=== PATIENT | female | born 1940 | race Caucasian/White ===

== ENCOUNTER → 2022-03-22 | Outpatient (CLI) | payer SELFPAY, OTHER ==
--- NOTE | 2022-03-22 14:19 | ECHOCS_ITS ---
Reason For Study: ARRYTHMIA Procedure This was a 2D Doppler, Color Flow transthoracic echocardiogram. The study was technically difficult. Contrast injection was performed. Exam performed in department. Left Ventricle Normal LV size. Left ventricular systolic function is normal. The estimated ejection fraction is 55 %. No regional wall motion abnormalities noted. Right Ventricle Normal RV size. Normal systolic function. Atria The left atrium is mildly enlarged. Normal right atrium. Mitral Valve Normal mitral valve. Tricuspid Valve Normal tricuspid valve. Aortic Valve The aortic valve is not well visualized. Pulmonic Valve The pulmonic valve is not well visualized. Great Vessels Normal aortic root. The pulmonary artery is normal size. Normal inferior vena cava. Pericardium/Pleural No pericardial effusion. Medication 22 gauge I.V. with prn adaptor inserted into right arm. Diluted definity 1ml given slow IV push to enhance endocardial definition. MMode/2D Measurements & Calculations LVIDd: 5.1 cm IVSd: 1.1 cm Ao root diam: 3.0 cm LVIDs: 3.8 cm LVPWd: 0.82 cm FS: 24.9 % LAV(MOD-sp4): 83.2 ml LA A4 area: 25.0 cm2 LA dimension(2D): 4.1 cm RA A4 area: 18.0 cm2 Time Measurements MV dec time: 0.19 sec Doppler Measurements & Calculations MV E max cash: 103.3 cm/sec Lat Peak E' Cash: 9.1 cm/sec Med Peak E' Cash: 5.5 cm/sec MV A max cash: 99.3 cm/sec E/E' lat: 11.4 E/E' med: 18.8 MV E/A: 1.0 MV V2 max: 103.6 cm/sec MV dec slope: 540.6 cm/sec2 Ao V2 max: 149.1 cm/sec MV max P.3 mmHg Ao max P.9 mmHg MV V2 mean: 72.5 cm/sec Ao V2 mean: 99.7 cm/sec MV mean P.3 mmHg Ao mean P.6 mmHg MV V2 VTI: 34.7 cm Ao V2 VTI: 35.4 cm LV V1 max: 102.4 cm/sec PA V2 max: 84.7 cm/sec LV V1 max P.2 mmHg PA V2 mean: 63.9 cm/sec LV V1 mean P.4 mmHg LV V1 mean: 72.0 cm/sec LV V1 VTI: 25.3 cm ECHO/Echo Complete W/ Contrast Interpretation Summary Normal LV size. Left ventricular systolic function is normal. The estimated ejection fraction is 55 %. Contrast injection was performed. Ordering Physician: Mateo Conner Referring Physician: Mateo Conner Performed By: Angeles Kim RCS
== END | disposition home or self-care (01) ==
LOC: CVS 14:19
PROVIDERS: PCP Nurse Practitioner Family; Referring Provider Internal Medicine Cardiovascular Disease; Visit Provider Internal Medicine Cardiovascular Disease
DX: I49.3 Ventricular premature depolarization (principal)
CPT/HCPCS: 93306; Q9957; A4216; C8929

== ENCOUNTER 2022-04-19 05:51 | Day surgery (SDC) | payer SELFPAY, OTHER ==
--- NOTE | 2022-02-08 11:16 | NURSING ---
During PAT interview, pt read 10/2021 EKG interpretation. Pt states EKG read PVC and heart block, see Workshop Manager. Pt states she has not seen Workshop Manager. Pt instructed to notify ordering physician and ask for Cardiology referral. Pt's Dgtr-in-law on PAT phone interview also.
[2022-04-19] VITALS (8 sets, daily range): BP systolic 144–173; BP diastolic 62–83; PULSE 70–75; RESP 16–18; TEMP 36.2–37; O2SAT 90–99; BMI 49.0
--- NOTE | 2022-04-19 | LES_PTH ---
PATIENT: LIGIA HOOVER [place]: [facility] [place][id number] AGE/SX: 82/F ROOM: RE04/19/[address]: Dr. Mayco Saldaña MD : 1940 BED: DIS: 04/19/2022 SPEC #: [id number] RECD: 04/19/22 08:09 STATUS: VERNELL BEVERLY #: [id number] ADEOLA: 04/19/22 00:[address]: Mayco Saldaña DEPT: SURGICAL PATHOLOGY RECD BY: Chary Boswell ENTERED: 04/19/22 09:03 SP TYPE: Lesion OTHR DR: Venessa Lee, ANTIQUE JEWELRY REPAIRER-C Tissues: A - Skin of nose, NOS B - Skin of nose, NOS C - Skin of nose, NOS Procedures: Frozen Section (charge) Frozen Section Add'l ([facility]) Surgery Specimen Level IV HEADER OPERATION: Excision lesion nose, local flap reconstruction, frozen section PRE-OP DIAGNOSIS: Basal cell carcinoma of skin of nose TISSUE SUBMITTED: A - Nasal tip ulcer, short stitch superior at 12 o?clock, long stitch medial at 3 o?clock, FS, B - Additional superior margin, short stitch superior, long stitch lateral, FS, C - Additional inferior margin, suture medial, FS FROZEN SECTION DIAGNOSIS A. Skin lesion of nose, excisional biopsy: Basal cell carcinoma. The tumor is present at 6 and 12 o?clock margins. B. Additional superior margin: Negative for carcinoma. C. Additional inferior margin: Negative for carcinoma. JOHN:power 04/19/2022 MICROSCOPIC DIAGNOSIS A. Skin lesion of nose, excisional biopsy: Ulcerated basal cell carcinoma. Solar elastosis. See comment. B. Additional superior margin: Negative for carcinoma. Solar elastosis. C. Additional inferior margin: Negative for carcinoma. Solar elastosis. JOHN:power 04/20/2022 COMMENT A. The tumor measures 0.7 cm in greatest dimension and it is present at 6 and 12 o?clock margins. MICROSCOPIC DESCRIPTION Slides are reviewed. GROSS DESCRIPTION A - Received fresh for frozen section diagnosis labeled with the patient's name is a specimen designated basal cell carcinoma skin of nose, nasal tip ulcer. The specimen consists of a round piece of frank-white skin measuring 1 x 1 x 0.2 cm. The skin surface shows a focal area of ulceration. The specimen is oriented as follows: short stitch superior at 12 o?clock, long stitch medial at 3 o?clock. The specimen is inked as follows: 6 o?clock - yellow, 12 o?clock - green, 3 o?clock - black, 9 o?clock - blue. The specimen serially sectioned and submitted entirely for frozen section diagnosis in three cassettes as follows: 1 - 12 o?clock margin, 2 - 6 o?clock margin, 3 - rest of the specimen. / SJ: 04/19/2022 B - Received fresh for frozen section diagnosis labeled with the patient's name is a specimen designated ?lesion superior margin.? The specimen consists of a piece of skin measuring 0.5 x 0.1 x 0.1 cm. The specimen is oriented as follows: short stitch - superior, long stitch - lateral. The specimen is inked as follows: lateral - black, medial - blue. The entire specimen is submitted for frozen section diagnosis in one cassette. / SJ:power 04/19/2022 C - Received fresh for frozen section diagnosis labeled with the patient's name is a specimen designated ?additional inferior margin. The specimen consists of a piece of frank-white skin measuring 0.6 x 0.1 x 0.1 cm. The specimen is oriented as suture medial. The specimen is inked as follows: medial - blue, lateral - black. The entire specimen is submitted is submitted for frozen section diagnosis in one cassette. / SJ: 04/19/2022 TC:0 CPT: 73786 x3, 15334 x3, 94929 x2
[2022-04-19] MEDS: Lactated Ringers 1,000 ML 15 ML IV (06:20)
[2022-04-19 06:35] LABS: Hematocrit 41.9 % (37-47); Hemoglobin 13.2 g/dL (12.0-15.0); Mean Corp Hgb Conc 31.5 g/dL (32-36); Mean Corpuscular Hgb 30.6 pg (27.0-32.0); Mean Platelet Vol. 10.3 fl (6.2-12.0); Platelet Count 251 K/mm3 (150-450); RBC Distribution Width CV 13.6 % (11.6-14.6); RBC Distribution Width SD 48.7 fl (35.1-43.9); Red Blood Count 4.32 M/mm3 (4.2-5.4); White Blood Count 7.9 K/mm3 (4.4-11.0)
[2022-04-19 06:51] LABS: Anion Gap 10 (5-15); BUN 21 mg/dL (7-18); BUN/Creat Ratio 18.9 RATIO (10-20); Calcium,Total 9.3 mg/dL (8.5-10.1); Chloride 102 mmol/L (98-107); Creatinine, Serum 1.11 mg/dL (0.55-1.02); EST Glomerular Filtration Rate 50 mL/min (>60); Est Glom Filt Rate - Afr Amer 61 mL/min (>60); Estimated Creatinine Clearance 29.49 ml/min; Glucose 190 mg/dL (74-106); Potassium 4.7 mmol/L (3.5-5.1); Sodium Level 136 mmol/L (136-145)
[2022-04-19 07:00] LABS: Bedside Glucose 186 mg/dL (74-106)
--- NOTE | 2022-04-19 07:35 | PCM.DC.SUM ---
Providers Primary Care Physician: Venessa Lee NP-C Reason For Visit: EXC LESION NOSE RT LOCAL FLAP RECONSTRUCTION FROZE Medications at Discharge Home Medications glimepiride 4 mg tablet 4 mg PO BID 02/08/22 hydrochlorothiazide 25 mg tablet 25 mg PO DAILY HTN 02/08/22 metformin 500 mg tablet 500 mg PO BID 02/08/22 simvastatin 40 mg tablet 1 tab PO QHS 02/08/22 carvedilol 25 mg tablet 25 mg PO BID #120 tabs 03/10/22 Weight / BMI Weight Weight: 117.8 kg Body Mass Index (BMI) 49.0 ABG / Lab / Microbiology Data Result Diagrams: 04/19/22 06:30 04/19/22 06:30 Laboratory: Laboratory Results - last 24 hr 04/19/22 06:30: WBC 7.9, RBC 4.32, Hgb 13.2, Hct 41.9, MCV 97.0, MCH 30.6, MCHC 31.5 L, RDW Std Deviation 48.7 H, RDW Coeff of Amaury 13.6, Plt Count 251, MPV 10.3 04/19/22 06:30: Sodium 136, Potassium 4.7, Chloride 102, Carbon Dioxide 24.0, Anion Gap 10, BUN 21 H, Creatinine 1.11 H, Estim Creat Clear Calc 29.49, Est GFR (MDRD) Af Amer 61, Est GFR (MDRD) Non-Af 50 L, BUN/Creatinine Ratio 18.9, Glucose 190 H, Calcium 9.3 04/19/22 06:35: POC Glucose 186 H D/C Instructions Discharge Diet: No restrictions Discharge Activity: Return to Normal Activity Remove Dressing in: 1 day Additional Dressing/Incision Instructions: Remove dressing tomorrow. May get the incision/sutures wet on Tuesday. Please Follow Up With: Mayco Saldaña MD When: end of next week Meaningful Use Info Meaningful Use Diagnoses (Choose all that apply): None applicable Discharge Plan Admission Attending Provider: Mayco Saldaña Primary Care Provider: Venessa Lee NP Discharge Orders/Prescriptions Prescriptions: No Action carvedilol 25 mg tablet 25 mg PO BID Qty: 120 3RF Rx Instructions: must administer with a meal/food metformin 500 mg tablet 500 mg PO BID Label Comments: TAKE ONE TABLET BY MOUTH TWICE DAILY simvastatin 40 mg tablet 1 tab PO QHS Label Comments: TAKE ONE TABLET BY MOUTH EVERY DAY glimepiride 4 mg tablet 4 mg PO BID Label Comments: TAKE ONE TABLET BY MOUTH TWICE DAILY hydrochlorothiazide 25 mg tablet 25 mg PO DAILY Label Comments: TAKE ONE TABLET BY MOUTH EVERY DAY Referrals / Follow Up: Venessa Lee LICENSING AND REGISTRATION DIRECTOR, LICENSING AND REGISTRATION DIRECTOR-C [Primary Care Provider] - Disposition Disposition (needs filled in before D/C Order can be placed): Home, Self Care
[2022-04-19] MEDS: Lidocaine 2% /Epi 1:100 (50ml) 50 ML Vial (08:00)
--- NOTE | 2022-04-19 09:23 | PCM.OPRPT ---
Report of Operation Date of Procedure: 04/19/22 Pre-Operative Diagnosis: basal cell carcinoma nose Post-Operative Diagnosis: same Surgery/Procedure Performed:: excision basal cell carcinoma nose (size of defect 1.5 x 1.1 cm) Local flap (bilobed) reconstruction Surgeon: Mayco Saldaña Type of Anesthesia: General Anesthesiologist: Israel Egan Estimated Blood Loss (mL): minimal Description of Procedure: The patient was taken to the operating room on 04/19/2022. She was placed in the supine position on the operating room table. She was given sufficient general endotracheal anesthesia. The head of bed of is elevated 30 degrees. The face was prepped and draped sterilely. The eyes were taped off the field with Tegaderm. I initially excised the lesion with a 15 blade with 5 mm margins. This was sent for frozen section. It was found that there were positive margins at 12 and 6:00. Additional superior and inferior margins were taken and sent to patholog. They were found to be negative for carcinoma. I then fashioned a bilobed flap that was based medially. Undermining was completed with sharp scissors. The bilobed flap was created with a 15 blade. The bilobed flap was then swung into the defect. 4-0 Vicryl was used to suture the deep layers. The skin was then closed with interrupted 6-0 nylon. Bacitracin and a pressure dressing were then applied. Patient was then awoken and brought to recovery in stable condition blood loss minimal placement none. sponge needle and instrument count were correct at the end of the procedure.
[2022-04-19] MEDS: Bacitracin 500 UNITS/GM PACKET (09:25)
[2022-04-19 10:41] LABS: Bedside Glucose 189 mg/dL (74-106)
== END 2022-04-19 11:39 | disposition home or self-care (01) ==
LOC: SDC 05:52 → AC 05:53
PROVIDERS: PCP Nurse Practitioner Family; Referring Provider Otolaryngology; Visit Provider Otolaryngology
PROC: (CPT 14060; principal; 2022-04-19 07:20)
DX: C44.311 Basal cell carcinoma of skin of nose (principal); E11.9 Type 2 diabetes mellitus without complications; Z79.899 Other long term (current) drug therapy; Z79.84 Long term (current) use of oral hypoglycemic drugs; E66.9 Obesity, unspecified; I10 Essential (primary) hypertension; I45.10 Unspecified right bundle-branch block; M19.90 Unspecified osteoarthritis, unspecified site
CPT/HCPCS: 14060; 00300; 80048; 82962; 85027; 88305; 88331; 88332; J7120; J2405

== ENCOUNTER → 2024-01-10 | Outpatient (CLI) | payer SELFPAY, OTHER ==
--- NOTE | 2024-01-10 08:27 | CT_ITS ---
STUDY: CT BILATERAL HIPS T PELVIS REASON FOR EXAM: Female, 83 years old. Pain. RADIATION DOSAGE (If Supplied By Facility): CTDIvol = ( 14.07 ) mGy, DLP = ( 1007.26 ) mGycm TECHNIQUE: Transaxial imaging of the pelvis, both hips and both knees was performed with oral contrast, and without intravenous administration of contrast material. Individualized dose optimization techniques were used for this CT. COMPARISON: None. FINDINGS: Diffuse marked osteopenia. Moderate to severe lower lumbosacral spondylosis and levoscoliosis. Severe arthrosis of the right hip with flattening of the right femoral head, subchondral cyst formation, subchondral sclerosis and osteophyte formation. Mild arthrosis of the left hip with osteophyte formation. Severe tricompartmental arthrosis of both knees with osteophyte formation. Vascular calcification and uterine fibroids in the pelvis. CT/Extremity Lower without Contra IMPRESSION: Diffuse marked osteopenia. Moderate to severe lower lumbosacral spondylosis with levoscoliosis. Severe arthrosis of the right hip as described. Mild arthrosis of the left hip as described. Severe tricompartmental arthrosis of both knees. Electronically Signed: Marcos Sherman MD at 16:01 EDT ,
== END | disposition home or self-care (01) ==
PROVIDERS: PCP Nurse Practitioner Family; Referring Provider Student in an Organized Health Care Education/Training Program; Visit Provider Student in an Organized Health Care Education/Training Program
DX: M16.11 Unilateral primary osteoarthritis, right hip (principal)
CPT/HCPCS: 73700

== ENCOUNTER 2024-01-30 12:01 | Observation (INO) | payer SELFPAY, OTHER ==
[2024-01-10 09:52] LABS: Absolute Lymphocyte Count 1.97 X10^3/uL (0.83-4.51); Absolute Neutrophil Count 4.5 X10^3/uL (2.0-7.7); Basophil# 0.04 X10^3/uL; Basophil% 0.5 % (0-1); Eosinophil# 0.31 X10^3/uL; Eosinophils% 4.1 % (0-5); Hemoglobin 12.2 g/dL (12.0-15.0); Lymphocyte # 1.97 X10^3/ul (0.83-4.51); Lymphocyte % 26.3 % (19-41); Mean Corp Hgb Conc 32.1 g/dL (32-36); Mean Corpuscular Hgb 29.7 pg (27.0-32.0); Mean Corpuscular Volume 92.5 fL (81-99); Mean Platelet Vol. 10.8 fl (6.2-12.0); Monocyte% 9.3 % (0-10); NRBC Flagged by Analyzer 0 % (0-5); Neutrophil # 4.45 X10^3/uL (2.7-7.7); Neutrophil % 59.5 % (47-70); Platelet Count 239 K/mm3 (150-450); RBC Distribution Width CV 14.6 % (11.6-14.6); RBC Distribution Width SD 49.6 fl (35.1-43.9); Red Blood Count 4.11 M/mm3 (4.2-5.4); White Blood Count 7.5 K/mm3 (4.4-11.0)
[2024-01-10 10:28] LABS: Albumin, Serum 3.6 g/dL (3.2-5.0); Anion Gap 9 (5-15); BUN 57 mg/dL (7-18); BUN/Creat Ratio 36.5 RATIO (10-20); Calcium,Total 10.1 mg/dL (8.5-10.1); Chloride 99 mmol/L (98-107); Creatinine, Serum 1.56 mg/dL (0.55-1.02); EST Glomerular Filtration Rate 34 mL/min (>60); Est Glom Filt Rate - Afr Amer 41 mL/min (>60); Glucose 199 mg/dL (74-106); Potassium 4.4 mmol/L (3.5-5.1); Sodium Level 138 mmol/L (136-145)
[2024-01-10 10:34] LABS: Magnesium 2.1 mg/dL (1.6-2.6)
[2024-01-30] VITALS (13 sets, daily range): BP systolic 104–181; BP diastolic 65–89; PULSE 59–78; RESP 16–22; TEMP 35.6–36.8; O2SAT 90–100; BMI 47.9; BMI 48.2
--- NOTE | 2024-01-30 | HIP_PTH ---
PATIENT: LIGIA HOOVER LOC: [facility] U#:[id number] AGE/SX: 84/F ROOM: [facility] [place] RE01/30/[address]: Dr. Sean Encinas DO : 1940 BED: 1 DIS: 01/31/2024 SPEC #: [id number] RECD: 01/30/24 13:37 STATUS: VERNELL REHuey #: [id number] ADEOLA: 01/30/24 00:[address]: Sean Encinas DEPT: SURGICAL PATHOLOGY RECD BY: Edy Tom ENTERED: 01/31/24 07:25 SP TYPE: TOTAL HIP OTHR DR: DO Dr. Fany Mccann MD Whitney Hofstetter, AGENT TELEGRAPHER-C Tissues: Hip, NOS Procedures: Decalcification bone/plaque Surgery Specimen Level IV HEADER OPERATION: Right total hip replacement robotic arm assist PRE-OP DIAGNOSIS: Unilateral primary osteoarthritis, right hip TISSUE SUBMITTED: Right hip bone and tissue MICROSCOPIC DIAGNOSIS Right hip bone and soft tissue, total hip replacement/resection: Femoral head with degenerative osteoarthritic changes. Fragments of fibroadipose tissue. JOHN: 02/03/2024 MICROSCOPIC DESCRIPTION Slides are reviewed. GROSS DESCRIPTION Received is one container labeled with the patient's name and designated bone and soft tissue right hip. The specimen consists of a deformed frank femoral head measuring 5.0 x 4.0 x 4.0 cm. Also present in the container are multiple pieces of bone reaming and a few fragments of bone measuring in aggregate 7.0 x 7.0 x 1.0cm. The articular surface displays prominent osteophyte formation, eburnation and bone erosion. Also present in the specimen container are multiple irregular fragments of bone reamings and pink-yellow soft tissue measuring in aggregate 7.0 x 7.0 x 1.0cm. Guitar Repairer sections are submitted in two cassettes as follows: 1 - soft tissue, 2 - bone after decalcification. / JOHN/ 01/31/2024 TC:5 CPT: 78810, 23136
--- NOTE | 2024-01-30 06:43 | PRE.ANES_ITS ---
ASA Classification* ASA Classification ASA Classification: 3 Assessment & Plan Anesthesia* Anesthesia Assessment Anesthesia Assessment: Discussed sedation and/or anesthesia options, risks, benefits, and alternatives with patient/parents/legal guardian/POA. Questions invited. The patient/parents/legal guardian/POA seems to understand and agrees to proceed with anesthesia plan. Reviewed the physical assessment, medical history, allergy history and patient home medications list prior to surgery/procedure/anesthetic and documented any changes. Performed airway and anesthesia risk assessments. Anesthesia Type Anesthesia Type: Spinal Anesthesia Focused Assessment* Airway Assessment Mouth opens: >3 cm Mallampati Score: II Focused Labs Anesthesia Preop lab: CBC WBC 7.5 K/mm3 (4.4-11.0) 01/10/24 08:51 RBC 4.11 M/mm3 (4.2-5.4) L 01/10/24 08:51 Hgb 12.2 g/dL (12.0-15.0) 01/10/24 08:51 Hct 38.0 % (37-47) 01/10/24 08:51 Plt Count 239 K/mm3 (150-450) 01/10/24 08:51 CHEMISTRY Potassium 4.4 mmol/L (3.5-5.1) 01/10/24 08:51 Sodium 138 mmol/L (136-145) 01/10/24 08:51 Magnesium 2.1 mg/dL (1.6-2.6) 01/10/24 08:51 BUN 57 mg/dL (7-18) H 01/10/24 08:51 Creatinine 1.56 mg/dL (0.55-1.02) H 01/10/24 08:51 Glucose 199 mg/dL (74-106) H 01/10/24 08:51 POC Glucose 189 mg/dL (74-106) H 04/19/22 10:21 TSH 2.80 uIU/mL (0.358-3.74) 01/10/24 08:51 COAG Pre-Assessment Diagnosis/Proposed Procedure Planned Operative Procedure(s): ROBOTIC ASSISTED RIGHT TOAL HIP ARHTROPLASTY Anesthesia History 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 When Was Last Pacemaker Check QUESTION #4 FULL TEXT: You/Your Family Experience fever (hyperthermia) with Anesthesia Last Oral Intake Last Oral intake: Last Oral Intake NPO since Meds taken in AM with sips of water? Meds patient instructed to take am of surgery PONV PONV - marine radio installer and servicer: PONV - marine radio installer and servicer Female Yes 01/06/24 10:26 HX of Motion Sickness No 01/06/24 10:26 HX of N/V After Surgery No 01/06/24 10:26 Non-Smoker Yes 01/06/24 10:26 Duration of Surgery greater Yes 01/06/24 10:26 than 60 minutes Number of Risk Factors 3 01/06/24 10:26 PONV Score Moderate Risk 01/06/24 10:26 Height & Weight Height & Weight: Anesthesia: Height & Weight Height 5 ft 1 in 12/23/23 09:57 Respiratory Assessment Respiratory Assessment - marine radio installer and servicer: Respiratory Tract Infection Hx - marine radio installer and servicer Hx Respiratory Tract Infection No 01/06/24 10:26 STOP Sleep Apnea STOP Sleep Apnea - marine radio installer and servicer: STOP Sleep Apnea - marine radio installer and servicer Hx Hypertension Yes: CONTROLLED WITH MEDS 01/06/24 10:26 Hx Sleep Apnea No 01/06/24 10:26 CPAP BIPAP Do you snore loudly (louder No 01/06/24 10:26 than talking or can be heard Do you often feel tired/ No 01/06/24 10:26 fatigued/ sleepy during daytime? Has anyone observed you stop No 01/06/24 10:26 breathing during sleep? STOP Results Negative 01/06/24 10:26 QUESTION #5 FULL TEXT : Do you snore loudly (louder than talking or can be heard through closed doors)? Tobacco Use History Tobacco Use History - marine radio installer and servicer: Tobacco Use History - marine radio installer and servicer Tobacco Use Smoking Status Never smoker 01/06/24 10:26 Hx Tobacco Use No 01/06/24 10:26 Years Smoking Packs Smoked per Day Smoking Cessation Date was within the last 15 years Hx Smoking Cessation Date Hx Smoking Cessation Counseling Hematologic Medial History Hematologic Hx - marine radio installer and servicer: Hematologic Medical Hx - cash processor Hx of Blood Transfusion No 01/06/24 10:26 Hx of Transfusion in last 3 No 01/06/24 10:26 Months Date of Last Transfusion (if within last 3 months) Ever experience any problems No 01/06/24 10:26 with transfusion(s)? Specify any problems Hx of Preganancy in last 3 N/A 01/06/24 10:26 Months Nurse Filling Out Transfusion [id number] 01/06/24 10:26 & Questions: Date: 01/06/24 01/06/24 10:26 Time: 10:30 01/06/24 10:26 Patient unable to answer at this time (ie. confused, unrespo /Reproduction History /Reproductive History - marine radio installer and servicer: /Reproductive Hx- marine radio installer and servicer Hx Now Gestational Age (in weeks): EDC: Hx Hx Para Hx Section SAB No 04/13/22 15:25 Active Medications Active Medications: Current Medications Generic Name Dose Route Start Last Admin Trade Name Freq PRN Reason Stop Dose Admin Acetaminophen 1,000 mg 01/30/24 09:15 Acetaminophen 500 Mg Tablet PO 01/30/24 09:16 X1 ONE Sodium Chloride 77.4 ml/ 0 ml 01/30/24 09:15 Ropivacaine 200 mg/ OPERA.SITE 01/30/24 09:16 Epinephrine HCl 0.6 mg/ X1 ONE Ketorolac Tromethamine 30 mg/ Morphine Sulfate 5 mg Gabapentin 600 mg 01/30/24 09:15 Gabapentin 600 Mg Tablet PO 01/30/24 09:16 X1 ONE Cefazolin Sodium 2 gm/ Sodium 110 mls @ 150 mls/hr 01/30/24 09:15 Chloride IV 01/30/24 09:58 PREOP ONE Tranexamic Acid 1,000 mg/ 110 mls @ 660 mls/hr 01/30/24 09:15 Sodium Chloride IV 01/30/24 09:24 X1 ONE Tranexamic Acid 1,000 mg/ 110 mls @ 660 mls/hr 01/30/24 09:15 Sodium Chloride IV 01/30/24 09:24 X1 ONE Magnesium Sulfate 1 gm/ 102 mls @ 408 mls/hr 01/30/24 09:15 Dextrose IV 01/30/24 09:29 X1 ONE Lactated Ringer's 1,000 mls @ 15 mls/hr 01/30/24 06:45 IV .Q48H MICHELLE Insulin Human Lispro 1 - 6 unit 01/30/24 09:15 Insulin Lispro 100 Unit/Ml Insuln.Pen SC 01/30/24 18:00 Q4H PRN PRN BG>/= 180, SEE PROTOCOL Protocol Sodium Chloride 5 - 15 ml 01/30/24 09:15 0.9% Nacl Peripheral Flush Adult/Peds IV UD PRN SALINE FLUSH PFSH Medical History Open wound Thyroid disease Dietary restriction History of edema Cardiology follow-up encounter History of echocardiogram Multiple premature ventricular complexes Right bundle branch block (RBBB) Obesity Essential hypertension Hyperlipidemia Wears glasses Wears dentures Diabetes Arthritis Ambulates with cane Low iron High cholesterol Back pain Constipation Non-smoker Hypertension History of irregular heartbeat Home Medications ?Medication ?Instructions ?Recorded ?Last Taken ?Type glimepiride 4 mg tablet 4 mg PO BID 02/08/22 Unknown History simvastatin 40 mg tablet 1 tab PO QHS 02/08/22 Unknown History carvedilol 25 mg tablet 25 mg PO BID #120 tabs 03/10/22 Unknown Rx ferrous sulfate 325 mg (65 mg 325 mg PO QDAY 12/23/23 Unknown History iron) tablet (FeroSul) furosemide 40 mg tablet 40 mg PO QAM 12/23/23 Unknown History levothyroxine 50 mcg tablet 50 mcg PO QDAY 12/23/23 Unknown History metformin 500 mg tablet 1,000 mg PO BID 12/23/23 Unknown History ascorbate calcium (vitamin C) 500 500 mg PO DAILY 01/06/24 Unknown History mg tablet elderberry fruit 200 mg capsule 200 mg PO DAILY 01/06/24 Unknown History vitamin E 268 mg (400 unit) capsule 268 mg PO DAILY 01/06/24 Unknown History Allergy/AdvReac Type Severity Reaction Status Date / Time No Known Allergies Allergy Verified 01/06/24 10:21 Family History Father Heart disease Surgical History Cancer Social History Smoking Status: Never smoker alcohol intake: never substance use type: does not use caffeine: Yes Type: coffee Number of servings: 1 Review of Systems (Anesthesia) ROS Narrative System reviewed and no additional complaints, except as documented.
[2024-01-30] MEDS: Gabapentin 600 MG Tablet PO (07:00)
[2024-01-30] MEDS: Acetaminophen 500 MG Tablet 1000 MG PO ×3 (07:00→21:09)
[2024-01-30] MEDS: Lactated Ringers 1,000 ML 15 ML IV ×2 (07:00→12:19)
[2024-01-30] MEDS: Magnesium 1 GM over 15 mins IV (07:04)
[2024-01-30] MEDS: Insulin Lispro 100 UNIT/ML INSULN.PEN SC ×4 (07:15→21:09)
[2024-01-30] MEDS: Cefazolin 2 GM in 0.9% Normal Saline (100mL Bag) 100 ML IV (08:49)
[2024-01-30] MEDS: TXA 1000mg in NS100 100ml (IVPB at Incision) 660 MG IV (09:00)
[2024-01-30 09:19] LABS: Bedside Glucose 218 mg/dL (74-106)
[2024-01-30] MEDS: TXA 1000mg in NS100 100ml (IVPB at Closure) 660 MG IV (11:13)
[2024-01-30] MEDS: JPS (Morphine 10mg/ml) OPERA.SITE (11:18)
--- NOTE | 2024-01-30 11:42 | PCM.POST.ANE ---
Anesthesia: Postop Eval I Current Vital Signs Temperature: 97.3 F Pulse Rate: 59 Blood Pressure: 104/89 Respiratory Rate: 18 Pulse Ox: 95 Assessment Airway patent: Yes Spontaneous unlabored respirations: Yes nausea: No Vomiting: No Anesthesia Complication: No Fluid Hydration Crystalloid volume administer (ml): 1,000 Total IV fluid infused: 1,000 Progress Note Anesthesia document: Postop Eval 1 completed: Yes
--- NOTE | 2024-01-30 12:05 | RAD_ITS ---
STUDY: X-RAY - PELVIS AND RIGHT HIP REASON FOR EXAM: Female, 84 years old. Post Op -- AP both hips on single fran/lateral of op hip PACU TECHNIQUE: 3 views of the pelvis and hip. COMPARISON: None. FINDINGS: The patient is status post right total hip replacement. There is good alignment. Postoperative soft tissue changes. RAD/Hip Min 2 Views (Portable) IMPRESSION: Status post right total hip replacement. There is good alignment. Postoperative soft tissue changes. Electronically Signed: Librado Mandel MD at 12:33 EDT ,
[2024-01-30 12:22] LABS: Bedside Glucose 221 mg/dL (74-106)
--- NOTE | 2024-01-30 13:56 | PCM.OPRPT ---
Report of Operation Date of Procedure: 01/30/24 Description of Surgical Findings:: Preoperative diagnosis: Right hip primary osteoarthritis Postoperative diagnosis: Right hip primary osteoarthritis Procedure: Robotic assisted right total hip arthroplasty Surgeon: Sean Encinas DO Veneer Trimmer: Nhung Moore PA-C Anesthesia: General endotracheal Anesthesiologist: Oz Raymundo MD Complications: None apparent Drains: None Estimated blood loss: 250 cc Urinary output: none recorded IV fluids: 1000 cc crystalloid Specimens: Femoral head Surgical implants: Dallin insignia high offset press-fit hip stem size #5, Biolox delta ceramic V 40 femoral head 36 mm outer diameter +2.5 mm neck length, Dallin Trident X3 10 degree polyethylene insert, Trident 2 TriTanium cluster hole acetabular shell 52 mm diameter Indications: This is an 84-year-old female seen in the outpatient setting for right hip pain. X-rays revealed severe right hip osteoarthritis with femoral head collapse. She failed oral dkpe-vph-qvsyacy analgesics including NSAIDs and Tylenol, activity modification. I recommended surgical intervention the form of right total hip arthroplasty. I reviewed the procedure with the patient, its risk, benefits, alternatives. Risks included but were not limited to bleeding, infection, loss of life or limb, risk of anesthesia, neurovascular injury, persistent pain, instability, need for additional surgery, failure of orthopedic hardware, loosening, osteolysis, need for assistive devices long-term, leg length discrepancy. Patient expressed understanding wish to proceed with surgery. Description of procedure: I greeted the patient in same-day surgery holding area the day of surgery. He was identified by name, medical record number, and date of . All questions were answered to patient satisfaction. The operative extremity was marked with a surgical marker. Informed consent was confirmed with the patient. Patient underwent spinal anesthetic in the PACU prior to the procedure. At time of her procedure, patient brought the operative suite and positioned supine initially on a standard operating table. Gentle MAC anesthesia was administered. Patient was then positioned in a lateral decubitus position with the right side up. An axillary roll was placed under the patient's left axilla. The left fibular head was free. We then prepped and draped the right lower extremity in normal, sterile orthopedic fashion. Prior to the procedure, the [facility] plan was reviewed and appeared appropriate based on the patient's CT scan and anatomy. We performed a timeout with all parties in attendance in agreement with the side, site, and operation to be performed. No concerns were voiced and would like to proceed. 1 g TXA IV as well as 2 g Ancef was administered prior to the incision by anesthesia staff. 1 g TXA IV was administered at time of closure additionally. I first elected to place our pelvic array with a curvilinear incision over the iliac crest just posterior to the ASIS. I bluntly dissected down the level of the periosteum. I then drilled 3 intracortical pins with excellent cortical purchase. Pelvic array was then assembled and positioned appropriately. I then turned my attention to the hip. A standard posterior lateral incision was made curvilinear over the posterior lateral hip, centered on the tip of the greater trochanter. Full-thickness skin incision was made, approximately 12 cm in length. I sharply dissected down the level of the fascia anuel. Fascia anuel was then incised in line with the incision. I bluntly dissected through the raphae of the gluteus nena. Femoral checkpoint was placed at this point. We then registered her femoral anatomy prior to dislocating the hip. I then internally rotated the hip. Limited gluteal bursectomy was performed to identify the short external rotators. A Cobra retractor was placed in his gluteus medius. Short external rotators were taken down with Bovie cautery and tagged for later repair with #2 Ethibond suture. This identified the underlying capsule. A hockey-stick shaped capsulotomy was made over the femoral neck carried posteriorly to the acetabular labrum. Labrum was released and the hip was dislocated. I then marked a standard femoral neck cut 1 fingerbreadth above the lesser trochanter. Sagittal saw was used to carefully cut the femoral neck. Femoral head was removed and examined and appeared benign. It was sent to pathology per hospital policy. I then turned my attention to the acetabulum. Cobra retractors were placed anterior and posteriorly. Self-retaining retractor was placed superiorly. Acetabular labrum was excised with a long handled knife. Acetabular pulvinar was excised with Bovie cautery. Hemostasis was excellent at this point. I then registered the acetabulum with the Lendinero robot successfully. I then brought in the Gerry robot with the acetabular reaming arm to a size 52. This was reamed and the planned position to the planned depth. Reamer was then removed. There was excellent bleeding bone at the base and excellent remaining anterior posterior khan of the acetabulum. 52 mm acetabular component was selected for and attached to the oil exploration engineer arm of the robot. I placed the acetabular component near planned position before attaching to the robot. The robot then held the cuff in position while I impacted it to an appropriate depth. The acetabular cup was then removed from the robotic arm. It had excellent rim fit. I then selected a 10 degree posterior lipped liner and impacted this per quality assurance monitor final recommendations. I then turned my attention to the femur. Box chisel was then utilized to gain access to the femoral canal. Canal finder was placed. Sequential broaches were used and press-fit manner. A final size 5 achieved excellent vertical and rotational stability. Calcar planer was used to prepare for the collar of the implant. We then trialed with a high offset hip stem as templated. A + 2.5 mm neck length was trialed. This achieved excellent stability as well as reapproximation of leg lengths. Trials were then removed. We copiously irrigated the wound with normal saline solution, Betadine solution, and irrisept solution. A size 5 stem was then impacted with excellent fixation. Final head was then impacted over clean, dry Amor taper neck. Final reduction was performed. A posterior capsular repair was performed with #2 Ethibond suture and bone tunnels, as well as the short external rotator repair. Femoral checkpoint was removed. Pelvic array pins were removed. IT band was closed watertight with #1 strata fix suture. Deeper fascial layers were closed with 0 Vicryl suture in interrupted fashion. Subcutaneous layers were reapproximated with 2-0 Vicryl suture and skin reapproximated with running subcuticular 3-0 strata fix and skin glue. Pelvic array incision was closed with buried 2-0 Vicryl suture and skin glue.. A silver dressing was applied. Patient tolerated procedure well without complication. She was positioned back in the supine position on his hospital bed. She was transferred to PACU in stable condition. A pillow was placed between the patient's leg to be present while she is in bed. Need for skilled actuarial assistant: Nhung Moore PA-C was critical to the outcome of the case. During the course of the procedure the physician actuarial assistant played a vital role. Her intimate knowledge of my steps in the procedure aided in safe and expedient completion of the procedure. The PA played a vital role in positioning particularly in obtaining the appropriate positioning. The PA was also vital in the retraction of soft tissues during the exposure and projecting vital structures. The PA was also vital and protecting soft tissues during times of bony cuts. She also played a vital role in closure with my direct supervision. The PA was also important during reduction and dislocation of the joint and trials intraoperatively. Post Operative Plan: Patient will be placed in observation overnight given her multiple comorbidities and advanced age. Plan for discharge to home likely tomorrow. Weightbearing: Weightbearing as tolerated right lower extremity, posterior hip precautions. Pillows between legs while in bed Antibiotics: Ancef 1 g every 8 hours x 3 doses, plan for 2 weeks oral doxycycline upon discharge for prophylaxis DVT Prophylaxis: Aspirin 81 mg twice daily to start tomorrow Avila: None Dressing: Maintain silver dressing x 5 days X-Rays: PACU x-rays were reviewed demonstrated well-positioned right total hip arthroplasty implant. Follow-up 2-week x-rays in the office. Follow-up: 2 weeks in my office as scheduled
[2024-01-30] MEDS: Ondansetron 4 MG/2 ML Vial IV (14:35)
[2024-01-30] MEDS: Cefazolin 1 GM/50 ML BAG IV (16:45)
--- NOTE | 2024-01-30 17:04 | PCM.PN.HOSP ---
Reason for Visit Reason for Visit: Diagnoses Encounter for other preprocedural examination (01/30/24) Subjective Subjective 84-year-old female history of hypertension, hypothyroidism, diabetes who presented to [facility] 01/30/[facility]24 for right hip primary osteoarthritis and robotic assisted right total hip arthroplasty with Dr. Encinas. Hospitalist consulted for postop medication management. Patient evaluated at bedside, presently denying any pain, no chest pain or shortness of breath, did have some nausea when she tried liquids postsurgery but has since received antiemetic and is feeling better, resting comfortably with family at bedside. No other acute complaints Objective Data Objective Data Vital Signs: Vital Signs Temp Pulse Resp BP Pulse Ox O2 Del Method O2 Flow Rate 98.0 F 78 18 141/71 H 95 Room Air 4 01/30/24 16:53 01/30/24 16:53 01/30/24 16:53 01/30/24 16:53 01/30/24 16:53 01/30/24 16:53 01/30/24 12:30 Oxygen Flow Rate (L/min) 4 Oxygen Delivery Method Room Air Weight: 119 kg Body Mass Index (BMI) 48.2 Intake & Output: Intake and Output for Last 24 Hours 01/28/24 01/29/24 01/30/24 23:59 23:59 23:59 Intake Total 511.75 / 511.75 Balance 511.75 / 511.75 Lab / Micro Data 01/10/24 08:51 01/10/24 08:51 Labs: Laboratory Results - last 24 hr 01/30/24 06:57: POC Glucose 218 H 01/30/24 12:01: POC Glucose 221 H Micro: Microbiology 01/10/24 08:51 Swab (Method) Nasal Screen MRSA/MSSA - Final Radiography Diagnostic Testing: Radiology Impression Hip X-Ray 01/30/24 12:05 IMPRESSION: Status post right total hip replacement. There is good alignment. Postoperative soft tissue changes. Electronically Signed: Librado Mandel MD at 12:33 EDT , Physical Exam Narrative General: Alert, oriented, no apparent distress HEENT: Atraumatic, normocephalic Eyes: Anicteric, normal conjunctiva, extraocular movements grossly intact Neck: Supple Respiratory: Clear to auscultation bilaterally, normal respiratory effort Cardiovascular: Regular rate and rhythm GI: Soft, nontender, nondistended Extremities: No edema Musculoskeletal: Moving all extremities Neuro: No overt focal neurological deficits Skin: No rashes appreciated Psych: Cooperative Assessment & Plan Assessment/Plan (1) Essential hypertension: (2) Obesity: (3) Hypothyroidism: (4) Diabetes mellitus, type 2: (5) Arthritis: PLAN: Plan # Hypertension -BP 139/76 at time of evaluation -Continue Lasix and Coreg -Was evaluated in December by cardiology and present medications were continued #Hypothyroidism -Continue Synthroid -TSH earlier this month within normal limits #Type 2 diabetes mellitus -Glucose checks and sliding scale insulin -Continue to hold metformin and glimepiride while inpatient #Morbid obesity -BMI 48.3 kg/m? -Complicates treatment, prognosis, outcomes -Recommend weight loss and lifestyle changes # Right hip osteoarthritis -Status post robotic assisted right total hip arthroplasty 01/[address] Encinas -Management per primary #DVT ppx: Patient on aspirin twice daily Fany Keane MD Charges/Coding Visit Charges Office Visits / Consults: 08045 OV L3 Est 20min
[2024-01-30 17:08] LABS: Bedside Glucose 212 mg/dL (74-106)
[2024-01-30] MEDS: Senna/Docusate Sodium 1 Tablet 2 TABLET PO (21:09)
[2024-01-30] MEDS: Carvedilol 25 MG Tablet PO (21:09)
[2024-01-30] MEDS: Aspirin 81 MG TAB.CHEW PO (21:09)
[2024-01-30] MEDS: Atorvastatin Calcium 20 MG Tablet PO (21:09)
[2024-01-30 21:25] LABS: Bedside Glucose 229 mg/dL (74-106)
[2024-01-31] MEDS: Cefazolin 1 GM/50 ML BAG IV (00:52)
[2024-01-31 00:56] VITALS: BP 150/59; PULSE 58; RESP 16; TEMP 36.3; O2SAT 100
[2024-01-31 05:11] VITALS: BP 162/70; PULSE 62; RESP 16; TEMP 36.2; O2SAT 100
[2024-01-31] MEDS: Acetaminophen 500 MG Tablet 1000 MG PO ×2 (05:12→13:41)
[2024-01-31] MEDS: Carvedilol 25 MG Tablet PO (05:12)
[2024-01-31] MEDS: Levothyroxine 50 MCG Tablet PO (05:12)
[2024-01-31] MEDS: Insulin Lispro 100 UNIT/ML INSULN.PEN SC ×2 (06:28→11:41)
[2024-01-31 06:44] LABS: Hematocrit 32.9 % (37-47); Hemoglobin 10.5 g/dL (12.0-15.0); Mean Corp Hgb Conc 31.9 g/dL (32-36); Mean Corpuscular Hgb 29.7 pg (27.0-32.0); Mean Corpuscular Volume 93.2 fL (81-99); Mean Platelet Vol. 10.7 fl (6.2-12.0); Platelet Count 194 K/mm3 (150-450); RBC Distribution Width CV 14.8 % (11.6-14.6); RBC Distribution Width SD 50.5 fl (35.1-43.9); Red Blood Count 3.53 M/mm3 (4.2-5.4); White Blood Count 7.5 K/mm3 (4.4-11.0)
[2024-01-31 06:52] LABS: Bedside Glucose 218 mg/dL (74-106)
--- NOTE | 2024-01-31 07:17 | DCINST_ITS ---
Discharge Instructions Follow Up Care Test Results: Test results from this visit will be discussed in further detail at your follow- up appointment, if applicable. Discharge Plan Admission Admit Date/Time: 01/30/24 12:01 Primary Reason for Your Visit: Right hip replacement Attending Provider: Sean Encinas Primary Care Provider: Venessa Lee NP Consulting Providers: Fany Keane; Lanre Taylor Instructions Additional Instructions / Restrictions: Follow preprinted instructions from your surgeon's office Discharge Orders/Prescriptions Prescriptions: No Action carvedilol 25 mg tablet 25 mg PO BID Qty: 120 3RF Rx Instructions: must administer with a meal/food ferrous sulfate [FeroSul] 325 mg (65 mg iron) tablet 325 mg PO QDAY furosemide 40 mg tablet 40 mg PO QAM levothyroxine 50 mcg tablet 50 mcg PO QDAY simvastatin 40 mg tablet 1 tab PO QHS Patient Comments: TAKE ONE TABLET BY MOUTH EVERY DAY glimepiride 4 mg tablet 4 mg PO BID Patient Comments: TAKE ONE TABLET BY MOUTH TWICE DAILY metformin 500 mg tablet 1,000 mg PO BID ascorbate calcium (vitamin C) 500 mg tablet 500 mg PO DAILY vitamin E 268 mg (400 unit) capsule 268 mg PO DAILY elderberry fruit 200 mg capsule 200 mg PO DAILY Referrals / Follow Up: Sean Encinas DO [Med Staff - Active Staff] - Within 2 Weeks (Appt has been made @ [facility]) Venessa Lee NP, LIABILITY CLAIMS EXAMINER-C [Primary Care Provider] - Disposition Disposition (needs filled in before D/C Order can be placed): Home, Self Care
--- NOTE | 2024-01-31 07:17 | PCM.PN.ORT ---
Subjective Subjective Patient seen and examined. Reports she feels sore and stiff. She reports her pain is controlled with current pain regimen. Denies any fever, chills, nausea vomiting, chest pain or shortness of breath. Patient does report nausea vomiting yesterday but this is since resolved. Urinating without difficulty. She has been out of bed with nursing. Patient anxious to return home today if possible and is requesting home therapy. Objective Data Objective Data Vital Signs: Vital Signs Temp Pulse Resp BP Pulse Ox O2 Del Method O2 Flow Rate 97.2 F L 62 16 162/70 H 100 Nasal Cannula 2 01/31/24 05:11 01/31/24 05:11 01/31/24 05:11 01/31/24 05:11 01/31/24 05:11 01/31/24 05:11 01/31/24 05:11 Oxygen Flow Rate (L/min) 2 Oxygen Delivery Method Nasal Cannula Weight: 262 lb 5.601 oz Body Mass Index (BMI) 48.2 Intake & Output: Intake and Output for Last 24 Hours 01/29/24 01/30/24 01/31/24 23:59 23:59 23:59 Intake Total 994.75 / 1194.75 642.25 / 642.25 Balance 994.75 / 1194.75 642.25 / 642.25 Lab / Micro Data 01/31/24 05:36 01/10/24 08:51 Labs: Laboratory Results - last 24 hr 01/30/24 06:57: POC Glucose 218 H 01/30/24 12:01: POC Glucose 221 H 01/30/24 16:42: POC Glucose 212 H 01/30/24 21:05: POC Glucose 229 H 01/31/24 05:36: WBC 7.5, RBC 3.53 L, Hgb 10.5 L, Hct 32.9 L, MCV 93.2, MCH 29.7, MCHC 31.9 L, RDW Std Deviation 50.5 H, RDW Coeff of Amaury 14.8 H, Plt Count 194, MPV 10.7 01/31/24 06:26: POC Glucose 218 H Micro: Microbiology 01/10/24 08:51 Swab (Method) Nasal Screen MRSA/MSSA - Final Radiography Diagnostic Testing: Radiology Impression Hip X-Ray 01/30/24 12:05 IMPRESSION: Status post right total hip replacement. There is good alignment. Postoperative soft tissue changes. Electronically Signed: Librado Mandel MD at 12:33 EDT , Physical Exam Narrative General - A&Ox3, NAD. VSS/AF Right lower extremity -incisional dressing C/D/I. SILT Sural, Saphenous, SPN, DPN, Tibial N. distributions. DP, PT 2+. BCR. DF, PF, EHL /5. No calf TTP. Assessment & Plan Assessment/Plan (1) Arthritis: PLAN: POD# 1 s/p right total hip arthroplasty with robotic arm assistance -Patient stable from my standpoint. Will mobilize with therapy today. - Pain control - Medicine following for medical management-appreciate input - PT/OT-posterior hip precautions. Weightbearing as tolerated right lower extremity with a walker. - DVT PPX -Multimodal with aspirin 81 mg twice daily, SCDs, ALEXANDER fletcher, early mobilization - Case management - D/C planning. Patient requesting home therapy as no one in the family drives. Case management consult ordered. Anticipate discharge home with home therapy today if progress adequate with PT/OT.
--- NOTE | 2024-01-31 07:27 | PCM.POSTANE2 ---
Anesthesia Postop Eval I Sum Postop Eval Completion status Anesthesia document: Postop Eval 1 completed: Yes Anesthesia Postop Eval I Summary Anesthesia Postop Eval I Summary: Anesthesia Postop Eval I: Assessment Summary Airway patent Yes 01/30/24 11:42 SKEIN [email or web address] Spontaneous unlabored Yes 01/30/24 11:42 SKEIN DRIER.CSIR respirations Mental status nausea No 01/30/24 11:42 SKEIN DRIER.CSIR Vomiting No 01/30/24 11:42 SKEIN [email or web address].CSIR Anesthesia Postop Eval I: Fluid Summary Crystalloid volume administer 1,000 01/30/24 11:42 SKEIN DRIER.CSIR (ml) Colloids volume administered ( ml) Blood Product volume administered (ml) Total IV fluid infused 1,000 01/30/24 11:42 SKEIN DRIER.CSIR Anesthesia Postop Eval I: Summary Notes Anesthesia Complication No 01/30/24 11:42 SKEIN DRIER.CSIR Anesthesia Complication Comment: Post-operative progress note Anesthesia: Postop Eval II Evaluation Mental status: Awake Pain Level: 0 nausea: No Vomiting: No
--- NOTE | 2024-01-31 07:27 | POSTOPAN2_ITS ---
Anesthesia Postop Eval I Sum Postop Eval Completion status Anesthesia document: Postop Eval 1 completed: Yes Anesthesia Postop Eval I Summary Anesthesia Postop Eval I Summary: Anesthesia Postop Eval I: Assessment Summary Airway patent Yes 01/30/24 11:42 WATER TREATMENT PLANT REPAIRER.[email or web address] Spontaneous unlabored Yes 01/30/24 11:42 WATER TREATMENT PLANT REPAIRER.CSIR respirations Mental status nausea No 01/30/24 11:42 WATER TREATMENT PLANT REPAIRER.CSIR Vomiting No 01/30/24 11:42 WATER TREATMENT PLANT REPAIRER.CSIR Anesthesia Postop Eval I: Fluid Summary Crystalloid volume administer 1,000 01/30/24 11:42 WATER TREATMENT PLANT REPAIRER.CSIR (ml) Colloids volume administered ( ml) Blood Product volume administered (ml) Total IV fluid infused 1,000 01/30/24 11:42 WATER TREATMENT PLANT REPAIRER.CSIR Anesthesia Postop Eval I: Summary Notes Anesthesia Complication No 01/30/24 11:42 WATER TREATMENT PLANT REPAIRER.CSIR Anesthesia Complication Comment: Post-operative progress note Anesthesia: Postop Eval II Evaluation Mental status: Awake Pain Level: 0 nausea: No Vomiting: No
[2024-01-31 07:39] LABS: Anion Gap 6 (5-15); BUN 23 mg/dL (7-18); BUN/Creat Ratio 20.9 RATIO (10-20); Calcium,Total 8.9 mg/dL (8.5-10.1); Chloride 106 mmol/L (98-107); EST Glomerular Filtration Rate 50 mL/min (>60); Est Glom Filt Rate - Afr Amer 61 mL/min (>60); Estimated Creatinine Clearance 45.85 ml/min; Glucose 179 mg/dL (74-106); Potassium 4.2 mmol/L (3.5-5.1); Sodium Level 138 mmol/L (136-145)
[2024-01-31] MEDS: Senna/Docusate Sodium 1 Tablet 2 TABLET PO (08:12)
[2024-01-31] MEDS: Ferrous Sulfate 325 MG Tablet PO (08:12)
[2024-01-31] MEDS: Furosemide 40 MG Tablet PO (08:12)
[2024-01-31] MEDS: Famotidine 20 MG Tablet PO (08:12)
[2024-01-31] MEDS: Aspirin 81 MG TAB.CHEW PO (08:13)
[2024-01-31 08:15] VITALS: BP 105/46; PULSE 59; RESP 16; TEMP 36.6; O2SAT 92
--- NOTE | 2024-01-31 11:30 | CASEMGMT ---
KHURRAM KAMARA Assessment Face to Face with patient for initial transition planning/care coordination assessment. KHURRAM KAMARA introduced self and role at [facility], pt voices understanding. Pt is A&Ox4 and is resting comfortably in the chair and is calm. Pt DIL at bedside. Care providers, pharmacy, and demographics verified. Admitting dx: Total Hip Replacement PCP: Venessa Lee Specialists: Ce (Ortho) Preferred Pharmacy: [facility] Insurance: [facility] Package Plan, [employer] Prescription Benefit: Pt was given education on free services such as Good Rx. Pt Rx will be sent to [facility] Retail LNOK: Ad Marshall (H), Lucas Marshall (Son) Living Arrangements: Pt lives with her in a single story home with one step to enter. 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 Pt is requiring assistance now (after Surgery). Pt states that her family is able to provide assistance Transportation: Pt and pt family do not drive. 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 CM to follow. DME: Working BGM and supplies. BP Monitor. FWW. Cane. Walk in shower with GB and chair. Pt may qualify for home oxygen. A verbal list of local in network DME companies provided to the pt at this time. Pt prefers [employer]. CM to follow. HHC/SNF: Denies Hx but states that she would like HHC. Pt denies wanting to see a local list of in-network HHC agencies and states that she would prefer to go through [facility] HH services. Referral placed, awaiting return call. Pt?s goal: Home with HHC Plan: Home with HHC. Pt denies the need for SNF and OP therapy and states that she would like to have HHC set up. Pt is projected to [place] today. WCTM. Betzy Clark RN, CM
--- NOTE | 2024-01-31 11:38 | CASEMGMT ---
Addendum entered by Cherry Ray 01/31/24 15:06: Received confirmation that pt is accepted by [facility]. SN cost is $150/visit and therapy is $200/visit. Pt is aware of this and states they will submit to the [employer]. Pt to call jinriksha driver and is ready for dc. Addendum entered by Cherry Ray 01/31/24 14:37: KHURRAM KAMARA into pt room, pt is aware that [facility] has responded and may be able to accept her. Reviewed with pt that the other agencies were unable. Pt is agreeable to using [facility]. Pt states she has a jinriksha driver to transport her home and she needs to give an hour notice. Pt has had meds delivered to the room from pharmacy. Addendum entered by Cherry Ray 01/31/24 14:13: Message sent to [facility] to confirm if they are able to accept pt via careport. Pt has a dc order in. Addendum entered by Cherry Ray 01/31/24 12:19: TC to [facility] to verify if they provide in home therapy in [place], left vm, will await returned call. Original Note: KHURRAM KAMARA into pt room, pt sitting up in chair, made pt aware that [facility] does not service [place]. Pt is agreeable to referrals being sent out to see who accepts pt for care and then selecting an agency from there. Updated Samy PAULSON CM.
[2024-01-31 11:44] VITALS: BP 151/46; PULSE 66; RESP 16; TEMP 36.6; O2SAT 96
[2024-01-31 12:00] LABS: Bedside Glucose 170 mg/dL (74-106)
--- NOTE | 2024-01-31 12:17 | CASEMGMT ---
Addendum entered by Elysia Clark 01/31/24 14:58: 1437: At this time, the coordinator at [facility] states that they are still looking into if they can accept the pt or not. MARLIN RN and KHURRAM KAMARA are aware. [facility]. Addendum entered by Elysia Clark 01/31/24 13:43: So far, all agencies have declined e/f [facility] who state that they should be able to accept the pt, but are looking into the case further. MARLIN PAULSON CM updated. [facility]. Original Note: [facility] states that they cannot service the location that the pt resides. KHURRAM Carey CM states that she talked to the pt and the pt is willing to go through any accepting [facility] agency at this time. Referrals sent to Malina, Junie Batista, TALIA Uriarte, Andra Curtis, Demi, Meredith, Odalis, Mounika, and Ramiro at this time. Awaiting return responses.
--- NOTE | 2024-01-31 13:28 | PHA.DC_ITS ---
Pharmacy [facility] has performed discharge medication reconciliation and counseling for this patient. Patient requested meds to beds, this [facility] called retail and requested delivery. 1. ACETAMINOPHEN 1000MG PO Q8 2. ASPIRIN 81MG PO BIDCM 3. MELOXICAM 7.5MG PO BID 4. OXYCODONE 5-10MG PO Q4H PRN PAIN 5. SENNA/DOCUSATE 2T PO BID The patient's discharge medication list was reviewed for discrepancies and discrepancies were resolved. The patient was counseled on the following discharge medications and changes in medications for homegoing were reviewed. The Reason for Use, instructions for use, and potential side effects were reviewed for all new medications. The patient's questions regarding all of their medications were answered. The patient was able to verbally demonstrate an understanding of their discharge medications. Patient counseled by retail pharmacy merchandiser Medications at Discharge Home Medications glimepiride 4 mg tablet 4 mg PO BID 02/08/22 simvastatin 40 mg tablet 1 tab PO QHS 02/08/22 carvedilol 25 mg tablet 25 mg PO BID #120 tabs 03/10/22 ferrous sulfate 325 mg (65 mg iron) tablet (FeroSul) 325 mg PO QDAY 12/23/23 furosemide 40 mg tablet 40 mg PO QAM 12/23/23 levothyroxine 50 mcg tablet 50 mcg PO QDAY 12/23/23 metformin 500 mg tablet 1,000 mg PO BID 12/23/23 ascorbate calcium (vitamin C) 500 mg tablet 500 mg PO DAILY 01/06/24 elderberry fruit 200 mg capsule 200 mg PO DAILY 01/06/24 vitamin E 268 mg (400 unit) capsule 268 mg PO DAILY 01/06/24 acetaminophen 500 mg tablet 1,000 mg (2 x 500 mg) PO Q8 28 days #168 tabs 01/31/24 aspirin 81 mg chewable tablet 81 mg PO BID 28 days #56 tabs 01/31/24 meloxicam 7.5 mg tablet 7.5 mg PO BID 30 days #60 tabs 01/31/24 oxycodone 5 mg tablet 5 - 10 mg (1 - 2 x 5 mg) PO Q4H PRN PRN Pain Score 4-10 7 days #42 tabs 01/31/24 sennosides 8.6 mg-docusate sodium 50 mg tablet (Stimulant Laxative Plus) 2 tab PO BID 7 days #28 tabs 01/31/24
== END 2024-01-31 15:48 | disposition home or self-care (01) ==
LOC: SDC 14:17 → MS3 14:17
PROVIDERS: Anesthesiology; Admitting Provider Student in an Organized Health Care Education/Training Program; PCP Nurse Practitioner Family; Referring Provider Student in an Organized Health Care Education/Training Program; Visit Provider Student in an Organized Health Care Education/Training Program
PROC: 8E0Y0CZ Robotic Assisted Procedure of Lower Extremity, Open Approach (ICD-10-PCS; CPT 27130; principal; 2024-01-30 08:15)
DX: M16.11 Unilateral primary osteoarthritis, right hip (principal); Z68.42 Body mass index [BMI] 45.0-49.9, adult; E66.01 Morbid (severe) obesity due to excess calories; E11.9 Type 2 diabetes mellitus without complications; Z79.84 Long term (current) use of oral hypoglycemic drugs; I10 Essential (primary) hypertension; Z79.890 Hormone replacement therapy; E03.9 Hypothyroidism, unspecified; Z79.899 Other long term (current) drug therapy; Z79.82 Long term (current) use of aspirin; E78.00 Pure hypercholesterolemia, unspecified
CPT/HCPCS: 27130; S2900; 01214; 36415; 73502; 80048; 82040; 82962; 83036; 83735; 84443; 85025; 85027; 87077; 87081; 88305; 88311; 94668; 96365; 96366; 96375; 97162; 97166; 99221; C1713; C1776; J7120; G0378; J2405; J3475